=== PATIENT | female | born 1970 | race Caucasian/White ===

== ENCOUNTER 2020-04-28 17:28 | Emergency (ER) | payer BC, SELFPAY ==
[2020-04-28 17:30] VITALS: BP 135/90; PULSE 114; RESP 18; TEMP 37; O2SAT 97; BMI 25.7
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
[2020-04-28] MEDS: Diphth,Pertuss(Acell),Tet Vac 0.5 ML Vial IM (17:54)
[2020-04-28 18:09] VITALS: PULSE 123; RESP 17
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
[2020-04-28 19:20] VITALS: PULSE 90; RESP 16; O2SAT 99
[2020-04-28] MEDS: HYDROcodone Bitartrate/Apap 5/325 Tablet PO (20:12)
== END 2020-04-28 20:23 | disposition home or self-care (01) ==
PROVIDERS: Emergency Provider Emergency Medicine
DX: S06.0X1A Concussion with loss of consciousness of 30 minutes or less, initial encounter (principal); S01.01XA Laceration without foreign body of scalp, initial encounter; S50.01XA Contusion of right elbow, initial encounter; S40.012A Contusion of left shoulder, initial encounter; S20.222A Contusion of left back wall of thorax, initial encounter; S70.312A Abrasion, left thigh, initial encounter; S70.311A Abrasion, right thigh, initial encounter; R40.2410 Glasgow coma scale score 13-15, unspecified time; V89.9XXA Person injured in unspecified vehicle accident, initial encounter; Y93.9 Activity, unspecified; Y92.9 Unspecified place or not applicable
CPT/HCPCS: 12002; 70450; 71101; 90715; 99284; A4216